=== PATIENT | female | born 1965 | race Caucasian/White ===

== ENCOUNTER → 2016-08-14 | Outpatient (CLI) | payer BC, SELFPAY ==
--- NOTE | 2016-08-14 09:54 | RAD ---
EXAM DESCRIPTION: Pelvis CLINICAL HISTORY: 51 yearsFemale, PELVIC PAIN COMPARISON: None. IMPRESSION: The pelvic ring is intact. No degenerative change at this time. No osseous lesion. Electronically signed by: Jeremie Cotton MD 08/14/2016 9:54 AM ACCESS REP
--- NOTE | 2016-08-14 09:54 | RAD ---
EXAM DESCRIPTION: Knee,Right Complete CLINICAL HISTORY: 51 yearsFemale, KNEE PAIN COMPARISON: None. IMPRESSION: Three views of the right knee demonstrate no evidence of fracture, osseous lesion or joint effusion. There is soft tissue thickening along the anterior margin of the knee, but no osseous correlation. Electronically signed by: Jeremie Cotton MD 08/14/2016 9:53 AM MAINTENANCE AND REPAIR WORKER
== END ==
LOC: RAD 07:59
PROVIDERS: ATTEND Orthopaedic Surgery
DX: M25.561 Pain in right knee (principal); M25.551 Pain in right hip

== ENCOUNTER 2018-10-11 05:41 | Day surgery (SDC) | payer BC, OTHER ==
--- NOTE | 2018-10-10 10:44 | HP ---
CHIEF COMPLAINT: Left hand pain and menstruate. HISTORY OF PRESENT ILLNESS: Clau is a 53-year-old female with a history of bilateral carpal tunnel syndrome. She has undergone contralateral carpal tunnel release. She is here today complaining of numbness without radiation. She does have some pain that seems to be more prominent over the first carpometacarpal joint. We have talked about options and she has requested operative intervention. After discussing the risks, benefits and alternatives to that, she has given informed consent. PAST SURGICAL HISTORY: 1. Right carpal tunnel release. MEDICATIONS: 1. Gabapentin. 2. Tramadol. 3. Duloxetine. 4. Ambien. 5. Advil. 6. Tylenol. ALLERGIES: NO KNOWN DRUG ALLERGIES. FAMILY HISTORY: None pertinent to today's complaint. SOCIAL HISTORY: The patient does not smoke or use any illicit drugs. She does drink on occasion. REVIEW OF SYSTEMS: Negative except as indicated in the History of Present Illness. PHYSICAL EXAMINATION: VITAL SIGNS: Blood pressure 123/93. Pulse 85. Height 5'5". Weight 132 pounds. MENTAL STATUS: The patient is awake, alert, and is able to give a good history and participate in the physical. The patient is oriented to person, place and time. SKIN: Normal tone and turgor. MUSCULOSKELETAL: She has positive carpal compression test on that side. She does have some minor thenar atrophy relative to the contralateral side. She has intact sensation in the inner aspect of the hand. She has pain to palpation at the first carpometacarpal joint. She has some crepitus with palpation. ASSESSMENT: 1. Carpal tunnel syndrome. PLAN: The plan at this point is for carpal tunnel release. We have discussed the risks, benefits, and alternatives to that and the patient has given informed consent. [facility][id number] [facility]
[2018-10-11] MEDS ORDERED: SODIUM CHL 0.9% 100ML MINI-BAG 100 ML IVPB ONE (05:57)
[2018-10-11] MEDS ORDERED: LACTATED RINGERS 1,000 ML ONE (05:57)
[2018-10-11] MEDS ORDERED: ceFAZolin SODIUM 1 GM VIAL ONE (05:58)
[2018-10-11] MEDS ORDERED: PROPOFOL 200 MG/20 ML VIAL IV ONE (07:00)
[2018-10-11] MEDS ORDERED: LIDOCAINE 1% 10 ML VIAL INJ ONE ×2 (07:00→07:21)
[2018-10-11] MEDS ORDERED: BUPIVACAINE 0.25% INJ 30 ML VIAL INJ ONE (07:21)
[2018-10-11] MEDS: ceFAZolin SODIUM 1 GM VIAL ONE ×2 (09:02→09:09)
[2018-10-11] MEDS: VANCOMYCIN HCL INJ 1,000 MG VIAL IVPB ONE ×2 (09:03→09:09)
[2018-10-11 09:36] VITALS: TEMP 97.3
[2018-10-11 09:57] VITALS: BP 117/60; O2SAT 97
--- NOTE | 2018-10-11 11:23 | OP ---
DATE OF PROCEDURE: 10/11/18 PREOPERATIVE DIAGNOSIS: 1. Carpal tunnel syndrome, left hand. POSTOPERATIVE DIAGNOSIS: 1. Carpal tunnel syndrome, left hand. PROCEDURE: 1. Carpal tunnel release. SURGEON: Dilshad Kulkarni MD. CV TECH: Joaquin Coyle CST, SA-C. ANESTHESIA: Local with sedation. COMPLICATIONS: None. FINDINGS: Thickening of the transverse carpal ligament. INDICATION: Clau has a history of carpal tunnel syndrome with wrist pain and numbness. She has failed conservative measures and has requested operative intervention. After discussing the risks, benefits and alternatives to that, the patient has given informed consent for carpal tunnel release. PROCEDURE: The patient was brought to the Operating Room and placed in the supine position. Sedation was administered and local anesthetic was injected into the operative area under sterile conditions. After the injection of anesthetic, the arm was sterilely prepped and draped. A longitudinal incision was made directly overlying the transverse carpal ligament and blunt dissection was carried down to the ligament. The transverse carpal ligament was sharply transected along its length and a [place] elevator was used to ensure complete release of the ligament. Once release had been confirmed, the wound was thoroughly irrigated and the wound was closed with Nylon suture. A sterile dressing was placed and the patient was taken to the Day Surgery Unit. POSTOPERATIVE PLAN: The patient has been encouraged to do range of motion of the digits and will followup with us in three days. [facility][id number] [facility]
== END 2018-10-11 09:45 | disposition home or self-care (01) ==
LOC: AMB 05:41 → MERGE 08:30 → AMB 09:45
PROVIDERS: ATTEND Orthopaedic Surgery
DX: G56.02 Carpal tunnel syndrome, left upper limb (principal); Z79.899 Other long term (current) drug therapy
CPT/HCPCS: 01810; 64721; 80307; 81001; J0690; J3370; J3490; J7050; J7120

== ENCOUNTER → 2019-02-21 | Outpatient (CLI) | payer BC ==
--- NOTE | 2019-02-22 09:09 | RAD ---
EXAM DESCRIPTION: Knee,Right Complete CLINICAL HISTORY: 53 years Female, PAIN IN RIGHT KNEE COMPARISON: None. Findings: Location: Right knee No acute fracture or dislocation. Minimal medial compartment narrowing. No significant joint effusion. Tiny tibial osteophytes. IMPRESSION: No evidence of acute process in the right knee. Electronically signed by: Marquez Covarrubias MD 02/22/2019 9:07 AM CDT
--- NOTE | 2019-02-22 09:10 | RAD ---
EXAM DESCRIPTION: Pelvis CLINICAL HISTORY: 53 years Female, PAIN IN RIGHT HIP COMPARISON: August 14, 2016 Findings: Joint spaces are maintained. No acute fracture or dislocation. No focal soft tissue swelling. Pelvic phleboliths. No suspicious calcification. IMPRESSION: Unremarkable pelvic radiograph. Electronically signed by: Marquez Covarrubias MD 02/22/2019 9:08 AM CDT
== END ==
LOC: RAD 07:44
PROVIDERS: ATTEND Orthopaedic Surgery
DX: M25.561 Pain in right knee (principal); M25.551 Pain in right hip

== ENCOUNTER → 2019-02-27 | Outpatient (CLI) | payer BC ==
--- NOTE | 2019-02-27 16:47 | MRI ---
MRI right knee without contrast INDICATION: Knee pain meniscal tear TECHNIQUE: Noncontrast MR imaging right knee standard protocol FINDINGS: Small to moderate joint effusion. Multifocal chondral fissuring of the patella most pronounced in the medial and lateral facets grade 3-4. Minimal lateral patellar tracking. Relatively horizontal tear throughout the body and posterior horn medial meniscus. Anterior drawer sign of the tibia. Diffuse disruption of the ACL. Reactive edema or contusion anterior aspect tibial plateau. Correlate with any recent trauma. PCL is intact. Extensor tendons are intact. No focal lateral meniscal tear. Collateral ligaments are intact. No advanced arthrosis of the tibiofemoral compartments. 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
== END ==
LOC: MRI 14:22
PROVIDERS: ATTEND Orthopaedic Surgery
DX: S83.241A Other tear of medial meniscus, current injury, right knee, initial encounter (principal); S83.511A Sprain of anterior cruciate ligament of right knee, initial encounter; M25.461 Effusion, right knee; M22.41 Chondromalacia patellae, right knee

== ENCOUNTER 2019-04-08 05:26 | Day surgery (SDC) | payer BC ==
--- NOTE | 2019-04-03 11:15 | RAD ---
Study: Frontal and Lateral Radiographs of the Chest. Indication: pre op Comparison: None. Impression: Heart size normal. Lungs hyperexpanded with mild interstitial prominence, likely chronic scarring, however mild edema or atypical infection could give this appearance. No consolidation, pleural effusion, or pneumothorax. No acute osseous abnormality. Electronically signed by: Kashmir Edmonds MD 04/03/2019 11:14 AM CDT
--- NOTE | 2019-04-07 08:35 | HP ---
CHIEF COMPLAINT: Right knee pain. HISTORY OF PRESENT ILLNESS: Clau is a 53-year-old female with a history of pain in the right knee. She has had pain going on for 3 years intermittently and this was initially related to a skiing accident. She has pain that radiate up to a 10, but is generally at a level of a 3 daily. She has used CBD oil and injections, however, has continued to have mechanical symptoms and pain. Aggravating factors include range of motion, standing and prolonged sitting. Associated symptoms are clicking and catching. She has had no previous surgery on there and has had an MRI which demonstrated tear in the meniscus. Because of her ongoing symptoms and the mechanical nature, she has requested operative intervention. After discussing the risks, benefits and alternatives to that, she has given informed consent. PAST SURGICAL HISTORY: 1. Bilateral carpal tunnel release. MEDICATIONS: 1. Estradiol. 2. Fluoxetine. 3. Advil. 4. Aleve. 5. CBD oil. PAIN CONTRACT: None. ALLERGIES: NO KNOWN DRUG ALLERGIES. CODE STATUS: Full code. IMMUNIZATIONS: Up to date. SOCIAL HISTORY: The patient does not smoke or use any illicit drugs. She does drink on occasion. FAMILY HISTORY: None pertinent to today's complaint. REVIEW OF SYSTEMS: Negative except as indicated in the History of Present Illness. HEENT: The patient reports no symptoms. RESPIRATORY: The patient reports no symptoms. CARDIOVASCULAR: The patient reports no symptoms. GASTROINTESTINAL: The patient reports no symptoms GENITOURINARY: The patient reports no symptoms. MUSCULOSKELETAL: Negative except as noted in History of Present Illness. SKIN: The patient reports no symptoms. NEUROLOGIC: The patient reports no symptoms. PHYSICAL EXAMINATION: VITAL SIGNS: Blood pressure 118/75. Pulse 80. Height 5'5". Weight 139 pounds. MENTAL STATUS: The patient is awake, alert, and is able to give a good history and participate in the physical. The patient is oriented to person, place and time. SKIN: Normal tone and turgor. MUSCULOSKELETAL: She has pain along the medial joint-line of the right knee with palpable clicking during range of motion, but she maintains full extension. Flexion is to about 130 degrees. She has negative Mirlande's and negative anterior drawer. She has no laxity in varus or valgus. The entire extremity is warm and well perfused. There is no overall malalignment, no deformity. There is no swelling or effusion present right now. She maintains full range of motion in the ankle, digits and hip. She has painless range of motion in the ankle, digits and hip. RADIOLOGY: My interpretation of the x-rays shows no acute bony abnormality. My interpretation of the MRI does demonstrate a tear of the medial meniscus. ASSESSMENT: 1. Medial meniscus tear. PLAN: The plan at this point is for knee arthroscopy. We have discussed the risks, benefits, and alternatives to that and the patient has given informed consent. #[id number] [facility]
[2019-04-08] MEDS ORDERED: SODIUM CHL 0.9% 100ML MINI-BAG 100 ML IVPB ONE ×2 (05:58→06:02)
[2019-04-08] MEDS ORDERED: LACTATED RINGERS 1,000 ML ONE (05:58)
[2019-04-08] MEDS ORDERED: ceFAZolin SODIUM 1 GM VIAL ONE ×4 (05:58→06:50)
[2019-04-08] MEDS ORDERED: VANCOMYCIN HCL INJ 1,000 MG VIAL IVPB ONE (06:43)
[2019-04-08] MEDS ORDERED: BUPIVACAINE 0.25% INJ 30 ML VIAL INJ ONE (06:43)
[2019-04-08] MEDS ORDERED: BUPIVACAINE 0.5% 30 ML VIAL INJ ONE (06:43)
[2019-04-08] MEDS ORDERED: LIDOCAINE 1% W/ EPINEPHRINE 20 ML VIAL INJ ONE (06:43)
[2019-04-08] MEDS ORDERED: BUPIVACAINE LIPOSOME 13.3 MG/ML VIAL INJ ONE (06:44)
[2019-04-08] MEDS ORDERED: methylPREDNISolone ACETATE 80 MG/ML VIAL ONE (06:44)
[2019-04-08] MEDS ORDERED: KETAMINE HCL 100 MG/ML VIAL ONE (06:50)
[2019-04-08] MEDS ORDERED: MIDAZOLAM INJ 5 MG/5 ML VIAL ONE (06:50)
[2019-04-08] MEDS ORDERED: HYDROmorphone HCL INJ 2 MG/ML VIAL ONE (06:51)
[2019-04-08] MEDS ORDERED: PROPOFOL 200 MG/20 ML VIAL IV ONE (10:00)
[2019-04-08] MEDS ORDERED: raNITIdine HCL INJ 25 MG/ML VIAL IV ONE (10:00)
[2019-04-08] MEDS ORDERED: DEXAMETHASONE INJ 10 MG/ML VIAL IV ONE (10:00)
[2019-04-08] MEDS ORDERED: KETOROLAC TROMETHAMINE INJ 30 MG/ML VIAL IV ONE (10:00)
[2019-04-08] MEDS ORDERED: MAGNESIUM SULFATE INJ 1 GM/2 ML VIAL IVPB ONE (10:00)
[2019-04-08] MEDS ORDERED: LIDOCAINE 1% 10 ML VIAL INJ ONE (10:00)
[2019-04-08 10:37] VITALS: BP 120/70; TEMP 97.2; O2SAT 99
--- NOTE | 2019-04-09 08:58 | OP ---
DATE OF PROCEDURE: 04/08/19 PREOPERATIVE DIAGNOSIS: 1. Medial meniscus tear. 2. ACL tear. POSTOPERATIVE DIAGNOSIS: 1. Medial meniscus tear. 2. ACL tear. 3. Patellofemoral cartilage loss. PROCEDURE: 1. Partial meniscectomy. 2. Debridement. SURGEON: Dilshad Kulkarni MD. MANAGER PEDIATRIC: Joaquin Coyle CST, -C. ANESTHESIA: General anesthesia. COMPLICATIONS: None. FINDINGS: 1. Bucket handle tear of the body and posterior one-third of the medial meniscus. 2. Chronic ACL tear. 3. Grade 4 chondral changes in the patellofemoral region. INDICATION: Clau has a long history of knee pain that she says onset when she had a skiing accident a couple of years ago. Her biggest issue at this time is chronic locking and catching. Clau and I have talked about what was found on her MRI which included meniscus tear, but also an ACL tear. She has never had any feelings or complaints of instability. Because of her need to return to full activities as soon as possible and lack of instability feelings, we talked about debridement and possible partial meniscectomy. After discussing the risks, benefits and alternatives to those options, the patient has given informed consent for the above procedures. PROCEDURE: The patient was brought to the Operating Room and placed in supine position. General anesthesia was induced and the patient's leg was sterilely prepped and draped. Standard anteromedial and anterolateral portals were established. Diagnostic arthroscopy was carried out with the above findings. Once diagnostic arthroscopy had been completed, attention was focused on the medial meniscus. It was thoroughly probed and the tear seemed to be in the white-white zone and was unstable. Arthroscopic biter was used to complete one limb of the bucket handle tear and then a 3.5 mm full radius shaver was used. Following that, the meniscal rim was very thoroughly probed to ensure stability. There were no unstable components to the meniscus. Attention was then focused on the patellofemoral joint. The patellar cartilage was debrided to stable base. The knee was thoroughly irrigated and closed with Nylon suture. Sterile dressings were placed. The patient was awoken from anesthesia and taken to Recovery. POSTOPERATIVE PLAN: The patient will be non-weightbearing and will followup with us in two days. I have talked with Clau about the potential for physical therapy in the future to help compensate for her ACL injury. #[id number] [facility]
== END 2019-04-08 09:55 | disposition home or self-care (01) ==
LOC: AMB 05:26
PROVIDERS: ATTEND Orthopaedic Surgery
DX: S83.211A Bucket-handle tear of medial meniscus, current injury, right knee, initial encounter (principal); S83.511A Sprain of anterior cruciate ligament of right knee, initial encounter; M22.41 Chondromalacia patellae, right knee; Z79.899 Other long term (current) drug therapy
CPT/HCPCS: 01400; 29881; 36415; 71046; 80048; 80307; 81001; 85025; 87070; 93005; J0690; J1030; J1100; J1170; J1885; J2250; J2780; J3370; J3475; J3490; J7050; J7120